=== PATIENT | male | born 1960 | race Caucasian/White ===

== ENCOUNTER 2017-06-24 18:58 | Emergency (ER) | payer BC, OTHER ==
--- NOTE | 2017-06-24 19:51 | CT ---
CT CERVICAL SPINE: Date: 06-24-17 Provided Clinical History: Neck pain status post injury. FINDINGS: There is no evidence for fracture or traumatic subluxation. No prevertebral soft tissue swelling is e vident. The visualized lung apices appear clear. Cervical degenerative changes are seen. IMPRESSION: No evidence for fracture or traumatic subluxation. POS: [facility]
--- NOTE | 2017-06-24 21:22 | CT ---
CT BRAIN: Date: 06-24-17 Provided Clinical History: Headache, status post injury. Comparison: None. FINDINGS: The ventricular system appears normal in size and morphology. There is no evidence for intracranial h emorrhage or mass effect. The extracranial soft tissues and osseous structures demonstrate no acute a bnormality. Conspicuous mucosal thickening is seen involving the maxillary sinuses, ethmoid air cells , and to a lesser extent frontal sinus. IMPRESSION: No evidence for intracranial hemorrhage or mass effect. POS: [facility]
== END 2017-06-24 20:31 | disposition home or self-care (01) ==
LOC: SCSER 18:58
DX: S06.0X0A Concussion without loss of consciousness, initial encounter (principal); S16.1XXA Strain of muscle, fascia and tendon at neck level, initial encounter; E78.5 Hyperlipidemia, unspecified; J45.909 Unspecified asthma, uncomplicated; F41.9 Anxiety disorder, unspecified; Z85.038 Personal history of other malignant neoplasm of large intestine; V89.2XXA Person injured in unspecified motor-vehicle accident, traffic, initial encounter
CPT/HCPCS: 70450; 72125

== ENCOUNTER 2018-06-18 19:27 | Emergency (ER) | payer BC, OTHER ==
[2018-06-18] MEDS ORDERED: Fentanyl 100 MCG/2 ML VIAL ONE (19:37)
[2018-06-18 19:48] LABS: #Basophils 0.1 thou/uL (0.0-0.2); #Eosinphils 0.3 thou/uL (0.0-0.7); #Lymphocytes 2.5 thou/uL (1.20-3.40); #Monocytes 0.8 thou/uL (0.11-0.59); %Basophils 1.6 % (0.0-1.0); %Eosinophils 4.4 % (0.0-10.0); %Lymphocytes 32.5 % (21.0-51.0); %Monocytes 10.8 % (0.0-10.0); %Neutrophils 50.7 % (42.0-75.0); Hemoglobin 16.9 g/dL (14.0-18.0); Mean Corpuscular HGB CONC 33.8 g/dL (32.0-36.0); Mean Corpuscular Hemoglobin 31.1 pg (27.0-31.0); Mean Corpuscular Volume 92.3 fL (78.0-98.0); Mean Platelet Volume 8.2 fL (7.4-10.4); Platelet Count 154 thou/uL (130-400); RBC Distribution Width 11.1 % (11.5-14.5); Red Blood Cell (RBC) Count 5.43 mill/uL (4.70-6.10); White Blood Cell (WBC) Count 7.8 thou/uL (4.8-10.8)
[2018-06-18 20:02] LABS: ALT (SGPT) 63 U/L (8-55); AST (SGOT) 62 U/L (5-34); Albumin 4.3 g/dL (3.5-5.0); Alkaline Phosphatase 76 U/L (40-150); Anion Gap 20 mmol/L (10-20); BUN (Urea Nitrogen) 13 mg/dL (8.4-25.7); Bilirubin, Total 1.3 mg/dL (0.2-1.2); Calc. Creatinine Clearance 0 mL/min (70-130); Calcium 9.8 mg/dL (7.8-10.44); Carbon Dioxide 19 mmol/L (22-29); Chloride 103 mmol/L (98-107); Estimated GFR-MDRD 83; Globulin 3.3 g/dL (2.4-3.5); Glucose 115 mg/dL (70-105); Lipase 47 U/L (8-78); Potassium 3.6 mmol/L (3.5-5.1); Protein, Total 7.6 g/dL (6.0-8.3); Sodium 138 mmol/L (136-145)
--- NOTE | 2018-06-18 20:21 | RAD ---
FRONTAL RADIOGRAPH CHEST: 06/18/18 COMPARISON: None. HISTORY: Sudden onset chest pain radiating down the left arm with shortness of breath and nausea. FINDINGS: There is mild diffuse increased linear interstitial density with pulmonary hyperinflation suggesting air trapping. No pneumothorax or pleural fluid is seen and there is no focal consolidation or alveola r edema. IMPRESSION: No acute findings. POS: [facility]
[2018-06-18] MEDS ORDERED: Lidocaine Viscous Sol 2% 15 ml UD Cup ONE (20:43)
[2018-06-18] MEDS ORDERED: Mag-Al Plus 1200 MG/1200 MG/120 MG/30 ML UDCUP ONE (20:43)
== END 2018-06-18 20:54 | disposition home or self-care (01) ==
LOC: SCSER 19:27
DX: R07.9 Chest pain, unspecified (principal); E78.5 Hyperlipidemia, unspecified; J45.909 Unspecified asthma, uncomplicated; M10.9 Gout, unspecified; F41.9 Anxiety disorder, unspecified; Z79.899 Other long term (current) drug therapy
CPT/HCPCS: 71045; 80053; 83690; 83880; 84484; 85025; 93005; 96374; J3010

== ENCOUNTER 2019-04-30 08:19 | Day surgery (SDC) | payer OTHER ==
[2019-04-29 09:19] VITALS: BMI 33.3
[~2019-04-30 08:19] MED LIST: EPINEPHrine 0.3 MG in Ophthalmic Irrigation Solution 500 ML IV SCH; Fentanyl 100 MCG/2 ML VIAL ONE; Midazolam HCl 2 mg/2 ml Vial ONE
[2019-04-30] MEDS ORDERED: Phenylephrine 2.5% Ophth Soln 5 ML BOT ONE (08:30)
[2019-04-30] MEDS ORDERED: Cyclopentolate 1% Opth Drop 2 ML BOT ONE (08:30)
--- NOTE | 2019-04-30 17:12 | OP ---
DATE OF PROCEDURE: 04/30/2019 PRINCIPAL PREOPERATIVE DIAGNOSIS: Dislocated intraocular lens, right eye. POSTOPERATIVE DIAGNOSIS: Dislocated intraocular lens, right eye. NAME OF PROCEDURE PERFORMED: 1. 25-gauge pars plana vitrectomy, right eye. 2. One-piece intraocular lens removal, right eye. 3. Akreos lens plus 11.0 diopter insertion, right eye. ESTIMATED BLOOD LOSS: None. SPECIMENS REMOVED: None. COMPLICATIONS: None. ANESTHESIA: MAC with retrobulbar block. SUMMARY OF OPERATION: The patient was identified in the preoperative holding area, where the correct eye being the right eye was marked for surgery. The patient was taken to the operating room, where MAC anesthesia was induced. A retrobulbar block was administered to the right eye. The block consisted of 1:1 ratio of 4% lidocaine and 0.75% Marcaine. A total of 5 mL was administered. The right eye was then prepped and draped in the usual sterile ophthalmic fashion for surgery. A wire lid speculum was placed. An inferonasal infusion was inserted 3.5 mm posterior to the limbus. It was noted to be within the vitreous cavity prior to being turned on to the infusion pressure of 30 mmHg. Subsequently, a conjunctival peritomy was fashioned from approximately 7 o'clock to 3 o'clock. The sclera was marked 180 degrees across from each other approximately at 1:30 and 7:30. A 3 mm posterior to the limbus, an additional fariba was made and subsequently 2 gustafson were made 2.5 mm each superior and inferior from that fariba. On the superior side of those 2 markings, a 25-gauge cannula was inserted directly. Subsequent stab incision with a 25-gauge MDR was done with the other scleral marking. The same procedure was done inferotemporally. Subsequently, approximately 5 mm scleral tunnel was made supratemporally. This was used with a crescent blade followed by opening with the keratome. Upon completion of this scleral tunnel, the Micro vitrector was introduced in the eye under visualization of the BIOM viewing system. A careful core and peripheral shave vitrectomy were performed. The vitreous was removed around the dislocated intraocular lens. The intraocular lens was noted to be dislocated inferiorly outside of the visual axis. Upon clearance of the vitreous, the intraocular lens was grasped and removed through the scleral tunnel incision. The Akreos lens was subsequently brought to the field with an 11.0 diopter power. The [place]hsan suture was subsequently inserted through the haptics on both sides. Subsequently, the sutures were passed through the eye and removed through the pre-placed wounds inferotemporally and supranasally. Following completion of the suture placement, the intraocular lens was inserted into the eye and brought posterior to the iris. The [place]-Ahsan sutures were tied with 311 fashion, allowing for good centration of the intraocular lens. The suture tails were cut for the Akreos, sutured for the [place]-Ahsan suture and was subsequently buried through the sclerotomy. The scleral tunnel wound was closed with two 9-0 Vicryl sutures. The overlying conjunctiva was closed with 8-0 Vicryl. Following completion of the closure of the peritomy, the infusion cannula was removed and all wounds were noted to be watertight and the eye was maintained to physiologic pressure. Subconjunctival Kenalog was injected. The wire lid speculum was removed followed by application of TobraDex ophthalmic ointment and a light patch and shield. The patient tolerated the procedure well and was taken to outpatient recovery area in good condition. Job ID: [id number]
== END 2019-04-30 17:34 | disposition home or self-care (01) ==
LOC: SDC 08:19
PROVIDERS: ATTEND Ophthalmology Retina Specialist
PROC: 08RJ3JZ Replacement of Right Lens with Synthetic Substitute, Percutaneous Approach (ICD-10-PCS; principal; 2019-04-30)
PROC: 08DJ3ZZ Extraction of Right Lens, Percutaneous Approach (ICD-10-PCS; principal; 2019-04-30)
PROC: 08PJ3JZ Removal of Synthetic Substitute from Right Lens, Percutaneous Approach (ICD-10-PCS; principal; 2019-04-30)
DX: T85.22XA Displacement of intraocular lens, initial encounter (principal); Z79.82 Long term (current) use of aspirin; Z79.899 Other long term (current) drug therapy; Z88.0 Allergy status to penicillin; Z98.41 Cataract extraction status, right eye; Z98.42 Cataract extraction status, left eye
CPT/HCPCS: J0171; J2250; J3010; V2632